=== PATIENT | female | born 1995 | race Caucasian/White ===

== ENCOUNTER 2024-02-13 09:53 | Emergency (ER) | payer OTHER, SELFPAY ==
[2024-02-13 09:55] VITALS: BP 143/94
--- NOTE | 2024-02-13 10:09 | ED.GENMED ---
History of Present Illness
<Mikki Mcdonald, REAL ESTATE BRANCH MANAGER - Last Filed: 02/13/24 16:45>
General
Chief Complaint: Breathing Problem
Source: patient
Exam Limitations: none
Time Seen by Provider: 02/13/24 10:04
Nursing documentation reviewed up to this point in time: agreed with
Travel History
Have you had any contact with someone who has COVID-19?: No
Do you have any symptoms of coronavirus? Fever > 100 degrees, chills, cough, shortness of breath, sore throat, loss of taste or smell, muscle aches, or headache?: No
History of Present Illness
History of Present Illness:
28-year-old female, 26 weeks , states 10 days ago developed sudden onset cough, progressed to sinus and chest congestion, couldn't sleep due to cough, went to 7 days ago, finished Zpack, is on day 7 of Augmentin 500 mg TID, Albuterol
inhaler x 7 days, states nonproductive cough is 30% improved but last night developed SOB even at rest which persists today. Denies CP, Abd pain, UTAI symptoms, vaginal discharge, has felt the baby moving. Denies fever, n/v/d. Appetite has been
good.
Past History
<Mikki Mcdonald, [employer] ESTATE BRANCH MANAGER - Last Filed: 02/13/24 16:45>
Past History
ED Past Medical History: Psychiatric (anxiety/depression, takes Zoloft 100 mg OD) and Other (seasonal allergies, takes Zyrtec daily)
ED Past Surgical History: Tonsilectomy
Social History
Tobacco: Non-smoker
Alcohol: None
Personal:
Living: with family
Review of Systems
<Mikki Mcdonald, [employer] ESTATE BRANCH MANAGER - Last Filed: 02/13/24 16:45>
Review of Systems
Allergies reviewed?: Yes
All Other Systems: ROS reviewed and negative except as documented in HPI and ROS
Constitutional: Denies fever or chills
EENT: Denies sore throat
Respiratory: Reports cough and trouble breathing
Cardiac: Denies chest pain
ABD/GI: Denies abdominal pain, nausea, vomiting or diarrhea
: Denies dysuria, frequency, difficulty voiding or urgency
Musculoskeletal: Reports no symptoms
Skin: Reports no symptoms
Neurological: Reports no symptoms
Phy Exam
<Mikki Mcdonald, [employer] ESTATE BRANCH MANAGER - Last Filed: 02/13/24 16:45>
Physical Exam
Physical Exam:
GENERAL: No acute distress. A&Ox3.
CONSTITUTIONAL: Afebrile.
EYES: clear, conjunctivae normal
Neck: Supple
ENMT: moist mucus membranes, Pharynx nl
RESPIRATORY: Regular respirations, nonlabored, RR 20, lungs with high pitched wheeze only in left upper lobe, otherwise clear. Pulse ox 98% RA
CARDIOVASCULAR: Regular rate and rhythm, no murmurs, no rubs.
GI: Soft, nontender, normal BS
MUSCULOSKELETAL: Moves with ease. Well perfused. No lower extremity swelling, redness, warmth, tenderness
SKIN: Warm, dry, pink
PSYCH: Normal mood and affect. Well kept, interactive and appropriate
NEUROLOGIC: Awake, alert and oriented. No focal neurological deficits
Scores
<Mikki Mcdonald, [employer] ESTATE BRANCH MANAGER - Last Filed: 02/13/24 16:45>
PERC Rule Criteria
Age <50 years: Yes
HR <100 bpm: Yes
Room air oxygen sat >94%: No
History of DVT or PE: No
Recent trauma or surgery: No
Hemoptysis: No
Exogenous estrogen: No
Clinical signs suggestive of DVT: No
: Yes
Considered low risk for PE: No
PERC Score: 3
PE can be excluded by PERC: No
Course
<Mikki V. Day, [employer] ESTATE BRANCH MANAGER - Last Filed: 02/13/24 16:45>
Orders/Labs/Results
Orders:
Orders
02/13/24 10:10
Test Result ONCE
02/13/24 10:28
Complete Blood Count/With Diff Urgent
Comprehensive Metabolic Panel Urgent
D-Dimer Urgent
02/13/24 10:34
COVID-19 Antigen Urgent
Source: Nasal Swab
Influenza A+B Rapid Molecular Urgent
MICHAEL Source: Nasal Swab
Specimen Description:
02/13/24 10:54
US Periph Venous LOWER Ext Jagdeep Urgent
Comment:
Reason For Exam: SOB at rest, 26 weeks
02/13/24 13:15
CT Chest Pe Study Urgent
Comment:
Reason For Exam: 26 wk , SOB, tachy neg US LEs
Abnormal Lab Results
02/13/24
10:28
RBC 4.03 L 10^6/uL
(4.20-5.40)
Hct 36.3 L %
(37.0-47.0)
Abs Immat Gran (auto) 0.1 H 10^3/uL
(0-0.05)
Absolute Neuts (auto) 7.2 H 10^3/uL
(1.4-6.5)
Immature Gran % 0.7 H %
(0-0.5)
Lymphocytes % 17.9 L %
(20.5-51.1)
D-Dimer 0.71 H ug/mlFEU
(0.00-0.50)
Sodium 134 L mmol/L
(135-145)
Chloride 108 H mmol/L
(98-107)
Carbon Dioxide 21 L mmol/L
(22-30)
Creatinine 0.4 L mg/dL
(0.6-1.0)
Total Protein 6.1 L g/dl
(6.3-8.2)
02/13/24 10:28
02/13/24 10:28
Vital Signs
Initial and Last Documented VS:
Initial Vital Signs
Temp Pulse Resp BP Pulse Ox
98.0 F 109 16 143/94 98
02/13/24 09:55 02/13/24 09:55 02/13/24 09:55 02/13/24 09:55 02/13/24 09:55
Last Documented Vital Signs
Temp Pulse Resp BP Pulse Ox
98.0 F 93 24 114/65 98
02/13/24 09:55 02/13/24 14:30 02/13/24 14:30 02/13/24 14:00 02/13/24 14:30
Marketing Manager consulted with Physician
Marketing Manager consulted with physician?: Yes
Name of Physician Consulted: Zahraa
<Lynette Vital MD - Last Filed: 02/13/24 11:06>
Orders/Labs/Results
Orders:
Orders
02/13/24 10:10
Test Result ONCE
02/13/24 10:28
Complete Blood Count/With Diff Urgent
Comprehensive Metabolic Panel Urgent
D-Dimer Urgent
02/13/24 10:34
COVID-19 Antigen Urgent
Source: Nasal Swab
Influenza A+B Rapid Molecular Urgent
MICHAEL Source: Nasal Swab
Specimen Description:
02/13/24 10:54
US Periph Venous LOWER Ext Jagdeep Urgent
Comment:
Reason For Exam: SOB at rest, 26 weeks
02/13/24 13:15
CT Chest Pe Study Urgent
Comment:
Reason For Exam: 26 wk , SOB, tachy neg US LEs
Abnormal Lab Results
02/13/24
10:28
RBC 4.03 L 10^6/uL
(4.20-5.40)
Hct 36.3 L %
(37.0-47.0)
Abs Immat Gran (auto) 0.1 H 10^3/uL
(0-0.05)
Absolute Neuts (auto) 7.2 H 10^3/uL
(1.4-6.5)
Immature Gran % 0.7 H %
(0-0.5)
Lymphocytes % 17.9 L %
(20.5-51.1)
D-Dimer 0.71 H ug/mlFEU
(0.00-0.50)
Sodium 134 L mmol/L
(135-145)
Chloride 108 H mmol/L
(98-107)
Carbon Dioxide 21 L mmol/L
(22-30)
Creatinine 0.4 L mg/dL
(0.6-1.0)
Total Protein 6.1 L g/dl
(6.3-8.2)
02/13/24 10:28
02/13/24 10:28
Vital Signs
Initial and Last Documented VS:
Initial Vital Signs
Temp Pulse Resp BP Pulse Ox
98.0 F 109 16 143/94 98
02/13/24 09:55 02/13/24 09:55 02/13/24 09:55 02/13/24 09:55 02/13/24 09:55
Last Documented Vital Signs
Temp Pulse Resp BP Pulse Ox
98.0 F 93 24 114/65 98
02/13/24 09:55 02/13/24 14:30 02/13/24 14:30 02/13/24 14:00 02/13/24 14:30
Sarinalt;Mikki Mcdonald NP - Last Filed: 02/13/24 16:45>
MDM/Problems Addressed
Differential Diagnosis Includes:
PNA, PE, Covid, Flu
MDM/Problems Addressed:
28-year-old female, 26 weeks , states 10 days ago developed sudden onset cough, progressed to sinus and chest congestion, couldn't sleep due to cough, went to 7 days ago, finished Zpack, is on day 7 of Augmentin 500 mg TID, Albuterol
inhaler x 7 days, states nonproductive cough is 30% improved but last night developed SOB even at rest which persists today. Denies CP, Abd pain, UTAI symptoms, vaginal discharge, has felt the baby moving. Denies fever, n/v/d. Appetite has been
good.
NAD, no hypoxia, mild tachycardia, mild tachypnea
28 yo 26 week pt with SOB at rest since last pm, on 2 antibiotics for presumptive PNA by with no significant improvement, no hx clots
Case discussed with Dr. Vital who evaluated pt.
Dimer 0.71, this may simply be from her .
CBC with no clinically significant abnormality
CMP with no clinically significant abnormality
Pt to US for bilateral LE US for DVT
Influenza A&B neg
Covid neg
Bilateral leg ultrasound negative for PE.
Dr. Vital back into discussed with patient and her who happens to be an EMT with shared decision making about the risk versus benefit of CT to rule out PE.
2:00 PM
Patient and decided to go ahead with a CT study for PE
This study is negative for PE
Patient's heart rate is in the 80s, no hypoxemia
Since no improvement on 2 antibiotics, this is most likely viral bronchitis, may be an element of feeling short of breath due to
Stable for discharge
At discharge, pt ambulated out with normal gait
<Mikki Mcdonald [employer] ESTATE BRANCH MANAGER - Last Filed: 02/13/24 16:45>
*Critical Care Note
Total Time (30-74mins, 75-104mins- exclusive of procedures): Not Applicable
ED Attending Note
<Mikki Mcdonald, REAL ESTATE BRANCH MANAGER - Last Filed: 02/13/24 16:45>
-
Portions of this chart may have been created with voice recognition software.� Occasional wrong word or��sound alike� substitutions may have occurred due to the inherent limitations of voice recognition software.
<Lynette Vital MD - Last Filed: 02/13/24 11:06>
ED Attending Note
Patient seen and examined by attending physician: Yes
I performed the substantive portion of visit, reviewed & personally made and approve the management plan that is documented in note by myself or ARIAS.: Yes
ED Attending Note:
28-year-old female, G1, P0, approximately 26 weeks gestation, presents emergency department complaints of cough and congestion for at least a week. She went to an urgent care 7 days ago, was presumptively diagnosed with pneumonia and put on Z-Ivan
Augmentin and albuterol. Since that time, she feels that her cough is getting slightly better, but she notes increasing breathlessness even while at rest in particular with activity. She denies recent immobilization, recent trauma, recent surgery,
leg swelling, personal or family history of DVT, smoking, or other PE risk factors with the exception of her current . Patient denies chest pain or pressure, hemoptysis, fever. On exam, lungs CTA, heart regular rate and rhythm, no calf
swelling or tenderness noted. Workup in progress, given and mild tachycardia associated with increasing breathlessness, consideration to rule out PE. D-dimer is expectedly elevated. Will begin with ultrasound of lower extremities
bilaterally.
Discharge Plan
Departure
Patient Disposition: Home (Routine Discharge)
Date of Disposition: 02/13/24
Time of Disposition: 14:18
Patient with high blood pressure during this ER visit?: No
Condition: Good
Covid-19: Negative COVID-19
Discharge Problem:
Acute bronchitis
Instructions: Acute Bronchitis, Adult (DC), Shortness of Breath (Dyspnea) (DC)
Referrals:
UNKNOWN - PT DOES,NOT KNOW [Family Provider] -
James Trinidad, [Non-Admitting Privileges] - Follow up in 5-7 days
Activity Restrictions/Additional Instructions:
As we discussed, no sign of pulmonary embolus, pneumonia in your workup here today.
Drink plenty of fluid
Interventions
Interventions:
*Risk Screen - Suicide Last Done: 02/13/24 10:25
*General Assessment Last Done: 02/13/24 10:25
*Neglect/Abuse Screening Last Done: 02/13/24 10:25
ED- Fall Risk Assessment Last Done: 02/13/24 10:25
*ED COVID-19 Vaccine History Last Done: 02/13/24 09:55
*Nursing Disposition Last Done: 02/13/24 14:40
ED- Cardiac Assessment Last Done: 02/13/24 10:25
ED- Pulmonary Assessment Last Done: 02/13/24 10:25
Discharge Date and Time
Discharge Date/Time: 02/13/24 14:41
[2024-02-13 10:22] VITALS: BP 138/81
[2024-02-13 10:25] VITALS: BMI 48.1
[2024-02-13 10:34] LABS: % Basophils 0.1 % (0-2); % Eosinophils 1.4 % (0-6); % Immature Granulocytes 0.7 % (0-0.5); % Lymphocytes 17.9 % (20.5-51.1); % Monocytes 4.9 % (1.7-9.3); Absolute Eosinophils 0.1 10^3/uL (0-0.7); Absolute Immature Granulocytes 0.1 10^3/uL (0-0.05); Absolute Lymphocytes 1.7 10^3/uL (1.2-3.4); Absolute Monocytes 0.5 10^3/uL (0.1-0.6); Absolute Neutrophils 7.2 10^3/uL (1.4-6.5); Hematocrit 36.3 % (37.0-47.0); Hemoglobin 12.3 g/dL (12.0-16.0); Mean Corp Hgb Conc. 33.9 g/dL (33.0-37.0); Mean Corpuscular Hgb 30.5 pg (27.0-31.0); Mean Corpuscular Volume 90.1 fL (81.0-99.0); Mean Platelet Volume 10.1 fL (7.4-10.4); Nucleated Red Blood Cells % 0 %; Platelet Count 278 10^3/uL (130-400); Red Blood Cell Count 4.03 10^6/uL (4.20-5.40); Red Cell Dist. Width 13.2 % (11.5-14.5); White Blood Cell Count 9.6 10^3/uL (4.8-10.8)
[2024-02-13 10:51] LABS: D-Dimer 0.71 ug/mlFEU (0.00-0.50)
[2024-02-13 10:56] LABS: ALT (SGPT) 27 U/L (0-35); AST (SGOT) 23 U/L (14-36); Albumin 3.5 g/dl (3.5-5.0); Alkaline Phosphatase 71 U/L (38-126); Blood Urea Nitrogen 11 mg/dl (7-17); Calcium 8.8 mg/dl (8.4-10.2); Carbon Dioxide 21 mmol/L (22-30); Chloride 108 mmol/L (98-107); Glucose 94 mg/dl (70-99); Potassium 3.9 mmol/L (3.5-5.1); Sodium 134 mmol/L (135-145); Total Bilirubin 0.4 mg/dl (0.2-1.3); Total Protein 6.1 g/dl (6.3-8.2); eGFR > 60.00
[2024-02-13 10:56] LABS: COVID-19 Antigen Negative (Negative)
[2024-02-13 11:00] VITALS: BP 143/93
[2024-02-13 12:00] VITALS: BP 112/75
[2024-02-13 13:00] VITALS: BP 124/58
[2024-02-13 14:00] VITALS: BP 114/65
== END 2024-02-13 14:41 | disposition home or self-care (01) ==
LOC: EMR 09:53
PROVIDERS: Registered Nurse; EMERGENCY PHYSICIAN Emergency Medicine
DX: O98.512 Other viral diseases complicating pregnancy, second trimester (principal); J20.9 Acute bronchitis, unspecified; Z3A.26 26 weeks gestation of pregnancy; Z11.52 Encounter for screening for COVID-19
CPT/HCPCS: 99285; 71275; 80053; 85025; 85379; 87502; 87811; 93970; Q9967